=== PATIENT | male | born 1985 | race Caucasian/White ===

== ENCOUNTER 2017-11-30 17:23 | Emergency (ER) | payer BC ==
[~2017-11-30] VITALS: Ht 182.9 cm; Wt 85.4 kg
[2017-11-30 17:36] VITALS: BP 142/88; PULSE 87; RESP 16; TEMP 98.7; O2SAT 97
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
[2017-11-30] MEDS ORDERED: OMEP40CA2 (18:40)
[2017-11-30] MEDS ORDERED: AMIT100T2 PO (18:40)
[2017-11-30] MEDS ORDERED: HTN med (18:40)
[2017-11-30] MEDS ORDERED: GABA300C5 PO (18:40)
[2017-11-30] MEDS ORDERED: KETOROLAC TROMETHAMINE 60 MG/2 ML (IM) VIAL IM ONE ×2 (18:45→19:00)
[2017-11-30] MEDS ORDERED: MELO15TA20 PO (18:51)
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
== END 2017-11-30 19:04 | disposition home or self-care (01) ==
LOC: PHEFT 17:23
DX: M25.531 Pain in right wrist (principal); I10 Essential (primary) hypertension; W01.0XXA Fall on same level from slipping, tripping and stumbling without subsequent striking against object, initial encounter; Z72.0 Tobacco use
CPT/HCPCS: 73110; 96372; 99284; J1885